=== PATIENT | female | born 1995 | race Hispanic/Latino ===

== ENCOUNTER 2018-01-02 14:37 | Emergency (ER) | payer BC ==
[~2018-01-02] VITALS: Ht 160 cm; Wt 57.6 kg
== END 2018-01-02 17:12 | disposition home or self-care (01) ==
LOC: ED 14:37 → FBCO 14:38 → ED 14:38
DX: O99.89 Other specified diseases and conditions complicating pregnancy, childbirth and the puerperium (principal); R10.2 Pelvic and perineal pain; M24.20 Disorder of ligament, unspecified site; Z3A.20 20 weeks gestation of pregnancy
CPT/HCPCS: 81001; 99284

== ENCOUNTER 2018-05-08 15:37 | Inpatient (IN) | payer BC ==
[~2018-05-08] VITALS: Ht 160 cm; Wt 68.0 kg
--- NOTE | 2018-05-08 22:30 | PR ---
[facility] [address], [place] [address] Signed Progress Notes IP Datetime Report Generated by GET: 05/08/2018 22:30 PROGRESS NOTES: [id number] Impression: Non-reassuring heart rate Procedures: Intrauterine Pressure Catheter; Scalp Electrode; Sterile Vag Exam Plan: Deliver- Section Informed Consent Obtain: Section Delivery VITAL SIGNS: [id number] Vital Signs: Reviewed; Within Normal Limits EXAM: [id number] Dilatation: 4.0 Effacement: 100 Station: -1 Uterine Contractions: q4-6 min MEMBRANES: [id number] Pooling: Positive Membrane Status: Ruptured Amniotic Fluid Color: Clear Comments: Pt seen and examined. Pt developed deep variable decelerations w/ slow return to baseline. Pt is remote from delivery at 4cm. Internal monitors placed and amnioinfusion to be started. While fetus maintains reassurance w/ moderate variability and accel w/ scalp stim, I recommended urgent primary LTCS. OR crew, anesthesia, and peds notified. Dr. Knowles notified and en route. Reviewed C/S in detail w/ pt including risks of infection, bleeding, injury to surrounding tissue, and risks associated w/ future . Consents signed. Ancef 2 gm preop. Fetus A: [id number] FHR Baseline: 120 Variability: Moderate 6-25bpm Accelerations: 15X15 Decelerations: Variable FHR Category: Category II Presentation: Vertex Comments on Fetus A: Fetus w/ moderate variability w/ deep decelerations with slow return to baseline. Accel w/ scalp stim. Fetus B: [id number] Signing Physician: Leeanna Christy DO Copies: *Electronically Signed* 05/08/182229 LEEANNA CHRISTY DO PATIENT NAME: FELICIANO DUENAS STANISLAW PROGRESS NOTE DATE OF : [birth year] PHYSICIAN: LEEANNA CHRISTY DO RPT #: [id number] REPORT IS CONFIDENTIAL AND NOT TO BE RELEASED WITHOUT AUTHORIZATION [address] [place], [place] [address] Signed ~ *Electronically Signed* 05/08/182229 LEEANNA CHRISTY DO PATIENT NAME: FELICIANO DUENAS STANISLAW PROGRESS NOTE DATE OF : [birth year] PHYSICIAN: LEEANNA CHRISTY DO RPT #: [id number] REPORT IS CONFIDENTIAL AND NOT TO BE RELEASED WITHOUT AUTHORIZATION
--- NOTE | 2018-05-09 10:23 | PR ---
[facility] [facility] [address] [facility] [place], [place] [address] Signed PP Progress Notes Datetime Report Generated by CPN: 05/09/2018 10:23 SUBJECTIVE: [id number] Pain: Within normal limits Nausea/Vomiting: Denies Flatus: Yes Bowel Movement: No Vital Signs: [id number] Vital Signs: Reviewed; Within Normal Limits EXAM: [id number] Cardiovascular: Normal Respiratory: Normal Abdomen/Uterus: Normal Lochia: Normal Vulva/Perineum: Not Done Breasts: Not Done CVA Tenderness: Normal Extremities: Normal Incision: Not Applicable Progress: Normal Exam Comments: Fundus firm U-2 IMPRESSION/PLAN/PROCEDURES: [id number] Impression: Normal progression Other Impression: Acute blood loss anemia Plan: Continue present management Progress Notes: Pt seen and examined. Doing well. Ambulating, voiding, and tolerating full diet. Pain and lochia minimal. Signing Physician: Leeanna Christy DO Copies: ~ *Electronically Signed* 05/09/18 1023 LEEANNA CHRISTY DO PATIENT NAME: AMISHA FELICIANO OLIVAS PROGRESS NOTE DATE OF : [birth year] PHYSICIAN: LEEANNA CHRISTY DO RPT #: [id number] REPORT IS CONFIDENTIAL AND NOT TO BE RELEASED WITHOUT AUTHORIZATION
--- NOTE | 2018-05-10 07:52 | PR ---
[facility] [address] [place], [place] [address] Signed PP Progress Notes Datetime Report Generated by GET: 05/10/2018 07:52 SUBJECTIVE: [id number] Pain: Within normal limits Nausea/Vomiting: Denies Flatus: Yes Bowel Movement: No Vital Signs: [id number] Vital Signs: Reviewed; Within Normal Limits EXAM: [id number] Cardiovascular: Normal Respiratory: Normal Abdomen/Uterus: Normal Lochia: Not Done Vulva/Perineum: Not Done Breasts: Normal CVA Tenderness: Normal Extremities: Normal Incision: Not Applicable Progress: Abnormal Exam Comments: Fundus firm U-2 nontender IMPRESSION/PLAN/PROCEDURES: [id number] Impression: Normal progression Other Impression: Acute blood loss anemia Plan: Continue present management; consult Progress Notes: Pt seen and examined. Doing well. Ambulating, voiding, and tolerating full diet. Pain and lochia minimal. with difficulties in supply and latch. Will work closely w/ RNs today re feeding. Denies lightheaded/dizziness. Hgb 8.7. No other complaints. Continue routine pp care. Anticipate discharge home tomorrow. Signing Physician: Leeanna Christy DO Copies: ~ *Electronically Signed* 05/10/18 0752 LEEANNA CHRISTY DO PATIENT NAME: YESY DUENASDAIANA DOVER PROGRESS NOTE DATE OF : [birth year] PHYSICIAN: LEEANNA CHRISTY DO RPT #: [id number] REPORT IS CONFIDENTIAL AND NOT TO BE RELEASED WITHOUT AUTHORIZATION
--- NOTE | 2018-05-11 07:37 | PR ---
[facility] [address] [place], [place] [address] Signed PP Progress Notes Datetime Report Generated by GET: 05/11/2018 07:37 SUBJECTIVE: [id number] Pain: Within normal limits Nausea/Vomiting: Denies Flatus: Yes Bowel Movement: Yes Vital Signs: [id number] Vital Signs: Reviewed; Within Normal Limits EXAM: [id number] Cardiovascular: Normal Respiratory: Normal Abdomen/Uterus: Normal Lochia: Normal Vulva/Perineum: Not Done Breasts: Not Done CVA Tenderness: Normal Extremities: Normal Incision: Not Applicable Progress: Normal Exam Comments: Fundus firm U-2 IMPRESSION/PLAN/PROCEDURES: [id number] Impression: Normal progression Other Impression: Acute on chronic anemia Plan: Discharge Progress Notes: Pt seen and examined. Doing well. Ambulating, voiding, and tolerating full diet. Pain and lochia minimal. C/O mild URI symptoms including cough, sore throat, runny nose and eyes. improved and is pumping. Will continue to work closely w/ RN and today re feeding prior to discharge. Discharge home today. F/U [facility] in 2 wks. Signing Physician: Leeanna Christy DO Copies: ~ *Electronically Signed* 05/11/18 0737 LEEANNA CHRISTY DO PATIENT NAME: FELICIANO DUENAS STANISLAW PROGRESS NOTE DATE OF : [birth year] PHYSICIAN: LEEANNA CHRISTY DO RPT #: [id number] REPORT IS CONFIDENTIAL AND NOT TO BE RELEASED WITHOUT AUTHORIZATION
== END 2018-05-11 10:45 | disposition home or self-care (01) | DRG 807 ==
LOC: FBCO 15:37 → FBC 15:57
PROVIDERS: ADMIT Obstetrics & Gynecology
PROC: 10E0XZZ Delivery of Products of Conception, External Approach (ICD-10-PCS; principal; 2018-05-08)
PROC: 0KQM0ZZ Repair Perineum Muscle, Open Approach (ICD-10-PCS; 2018-05-08)
DX: O76 Abnormality in fetal heart rate and rhythm complicating labor and delivery (principal); Z37.0 Single live birth; Z3A.37 37 weeks gestation of pregnancy; O70.1 Second degree perineal laceration during delivery
CPT/HCPCS: 36415; 82803; 85027; J2274; J2405; J2590; J7120

== ENCOUNTER 2020-04-14 22:49 | Inpatient (IN) | payer BC, OTHER ==
[~2020-04-14] VITALS: Ht 160 cm; Wt 71.7 kg
--- NOTE | 2020-04-15 01:23 | NUR ---
0110- SWABBED BOTH NARES FOR RAPID COVID TEST
[2020-04-15] MEDS ORDERED: PRENATA CHEWAB1 EACH PO (01:25)
--- NOTE | 2020-04-15 09:55 | PR ---
[facility] [facility] [address] [facility] [place], [place] [address] Signed PP Progress Notes Datetime Report Generated by CPN: 04/15/2020 09:55 SUBJECTIVE: [id number] Pain: Within Normal Limits Nausea/Vomiting: Denies Flatus: Yes Bowel Movement: No Vital Signs: [id number] Vital Signs: Reviewed; Within Normal Limits EXAM: Ongoing Cardiovascular: Normal Respiratory: Normal Abdomen/Uterus: Normal Lochia: Normal Vulva/Perineum: Not Done Breasts: Not Done CVA Tenderness: Normal Extremities: Normal Incision: Not Applicable Progress: Normal Exam Comments: Fundus firm U-2 nontender IMPRESSION/PLAN/PROCEDURES: [id number] Impression: Normal Progression Other Plans: Start oral iron Progress Notes: Pt seen and examined, doing well. Ambulating, voiding, and tolerating full diet. Pain and lochia minimal. well. Mild anemia; pt reports asymptomatic. Will start oral iron. Anticipate d/c home tomorrow. Signing Physician: Leeanna Christy DO Copies: ~ *Electronically Signed* 04/15/20 0955 LEEANNA CHRISTY DO PATIENT NAME: AMISHAFELICIANO TORRES PROGRESS NOTE DATE OF : 89 PHYSICIAN: LEEANNA CHRISTY DO RPT #: [id number] REPORT IS CONFIDENTIAL AND NOT TO BE RELEASED WITHOUT AUTHORIZATION
--- NOTE | 2020-04-16 09:46 | PR ---
[facility] [address] [facility] [place], [place] [address] Signed PP Progress Notes Datetime Report Generated by CPN: 04/16/2020 09:46 SUBJECTIVE: [id number] Pain: Within Normal Limits Nausea/Vomiting: Denies Flatus: Yes Bowel Movement: Yes Vital Signs: [id number] Vital Signs: Reviewed; Within Normal Limits EXAM: Met Cardiovascular: Normal Respiratory: Normal Abdomen/Uterus: Normal Lochia: Normal Vulva/Perineum: Not Done Breasts: Not Done CVA Tenderness: Normal Extremities: Normal Incision: Not Applicable Progress: Normal Exam Comments: Fundus firm U-2 nontender IMPRESSION/PLAN/PROCEDURES: [id number] Impression: Normal Progression Plan: Discharge Other Plans: Start oral iron Progress Notes: Pt doing well. Ambulating, voiding, and tolerating full diet. Pain and lochia minimal. well. Desires d/c home today. Reviewed d/c instructions in detail. F/U Dr. Knowles 2 wks Signing Physician: Leeanna Christy DO Copies: ~ *Electronically Signed* 04/16/20 0946 LEEANNA CHRISTY DO PATIENT NAME: FELICIANO DUENAS STANISLAW PROGRESS NOTE DATE OF : [birth year] PHYSICIAN: LEEANNA CHRISTY DO RPT #: [id number] REPORT IS CONFIDENTIAL AND NOT TO BE RELEASED WITHOUT AUTHORIZATION
== END 2020-04-16 10:20 | disposition home or self-care (01) | DRG 807 ==
LOC: FBCO 22:49 → FBC 23:01
PROVIDERS: ADMIT Obstetrics & Gynecology; ATTEND Obstetrics & Gynecology
PROC: 10E0XZZ Delivery of Products of Conception, External Approach (ICD-10-PCS; principal; 2020-04-14)
PROC: 10907ZC Drainage of Amniotic Fluid, Therapeutic from Products of Conception, Via Natural or Artificial Opening (ICD-10-PCS; 2020-04-14)
DX: O69.81X0 Labor and delivery complicated by cord around neck, without compression, not applicable or unspecified (principal); Z37.0 Single live birth; O99.62 Diseases of the digestive system complicating childbirth; K21.9 Gastro-esophageal reflux disease without esophagitis; Z3A.38 38 weeks gestation of pregnancy; Z79.899 Other long term (current) drug therapy; O90.81 Anemia of the puerperium; D64.9 Anemia, unspecified
CPT/HCPCS: 36415; 85027; C9803; J7121; U0003

== ENCOUNTER 2021-12-23 23:12 | Emergency (ER) | payer BC, OTHER ==
[~2021-12-23] VITALS: Ht 152.4 cm; Wt 71.7 kg
[~2021-12-23 23:12] MED LIST: PRENATA CHEWAB1 EACH PO
[2021-12-24] MEDS ORDERED: FEROSUL325 MG PO (00:43)
[2021-12-24] MEDS ORDERED: OMEPRAZOLE20 MG PO (00:44)
[2021-12-24] MEDS ORDERED: CEFDINIR300 MG PO (01:06)
== END 2021-12-24 01:48 | disposition home or self-care (01) ==
LOC: ED 23:12
DX: N39.0 Urinary tract infection, site not specified (principal); K21.9 Gastro-esophageal reflux disease without esophagitis; Z79.899 Other long term (current) drug therapy
CPT/HCPCS: 36415; 80053; 81001; 85025; 96365; 99284-25; A9270; J0696; J7030